=== PATIENT | female | born 1985 | race Two or more races ===

== ENCOUNTER 2023-11-15 16:00 | Outpatient (CLI) | payer OTHER | END 2023-11-15 16:01 | disposition home or self-care (01) | LOC: SLEEPLAB 16:00 | PROVIDERS: ATTEND Internal Medicine Rheumatology | DX: G47.33 Obstructive sleep apnea (adult) (pediatric) (principal); G47.10 Hypersomnia, unspecified; G25.81 Restless legs syndrome; R53.83 Other fatigue | CPT/HCPCS: 95800 ==